=== PATIENT | male | born 1970 | race Caucasian/White ===

== ENCOUNTER 2021-03-17 11:26 | Emergency (ER) | payer BC, SELFPAY ==
[2021-03-17 11:26] VITALS: BP 146/84; PULSE 96; RESP 18; TEMP 36.4; O2SAT 97; BMI 35.2
[2021-03-17 11:55] VITALS: BP 146/84; PULSE 96; RESP 18; TEMP 36.4; O2SAT 97
--- NOTE | 2021-03-17 12:19 | VDLE_ITS ---
Reason For Study: SWELLING RIGHT GSV is normal. CFV is compressible, spontaneous, phasic, competent and demonstrates normal augmentation. FV is compressible, spontaneous, phasic, competent and demonstrates normal augmentation. POP V is compressible, spontaneous, phasic, competent and demonstrates normal augmentation. T/P Trunk is compressible. PTV is compressible. RT PerV is compressible. Procedure Exam performed portable in ED. A preliminary report was called and/or faxed to ED. VL/Venous Duplex US, Unilateral Interpretation Summary There is no evidence of right lower extremity deep vein thrombosis. Right great saphenous vein appears patent and compressible segmentally. Ordering Physician: Clarita Sierra Performed By: Leanne Reyez, KAREN, RVT
--- NOTE | 2021-03-17 12:19 | EDS_ITS ---
HPI History of Present Illness Chief Complaint: Lower Extremity Injury Informant: patient Onset/Context/Timing Onset: Weeks Current Severity: Moderate Maximum Severity: Moderate Narrative Narrative: Patient presents secondary to right lower extremity pain and swelling. Patient states that on February 24 he had a Roll-off dumpster delivered to his house. He had thrown something in there that he did not want thrown out. He climbed into the dumpster and the material underneath him shifted and he fell striking his greenfield against the side of the dumpster. Patient states that he had some swelling and pain there that was progressively improving. Over the past 2 days has not had increased pain, redness, and swelling to his right lower leg. No chest pain or shortness of breath. [facility] Medical History (Updated 03/17/21 @ 13:[address] Clarita Sierra MD) Epilepsy Home Medications cephalexin 500 mg PO Q6 #40 cap 03/17/21 [Rx Last Taken Unknown] sulfamethoxazole-trimethoprim [Bactrim DS] 1 tab PO BID #20 tab 03/17/21 [Rx Last Taken Unknown] Allergy/AdvReac Type Severity Reaction Status Date / Time No Known Allergies Allergy Verified 03/17/21 11:28 Social History Smoking Status: Current every day smoker tobacco type: cigarettes ROS ROS ED Constitutional Constitutional ED: Denies chills or fever(s) Eyes Eyes: Denies change in vision ENT ENT ED: Denies sore throat Cardiovascular Cardiovascular: Denies chest pain Respiratory/Chest Respiratory/Chest: Denies cough or dyspnea Gastrointestinal Gastrointestinal: Denies abdominal pain, diarrhea, nausea or vomiting Genitourinary Genitourinary ED: Denies dysuria Musculoskeletal Musculoskeletal: Reports arthralgias; Denies back pain Integumentary Denies rash Neurologic Neurologic: Denies headache(s) or weakness Psychiatric Psychiatric: Denies anxiety or depression Endocrine Endocrinology: Denies polydipsia or polyuria Allergic/Immunologic Allergic/Immunologic ED: Denies urticaria EXAM Physical Exam Const Vital Signs: 03/17/21 11:26 03/17/21 11:55 Temperature 97.6 F L 97.6 F L Temperature Source Temporal Temporal Pulse Rate 96 96 Respiratory Rate 18 18 Blood Pressure 146/84 H 146/84 H Blood Pressure Mean 104 104 Pulse Ox 97 97 Oxygen Delivery Method Room Air Room Air Positive well nourished and well developed General Appearance ED: well developed HEENT Reports normocephalic and head/scalp atraumatic Eyes PERRL and EOMs intact bilaterally Neck supple Chest Wall inspection of chest normal and palpation of chest normal Resp normal respiratory effort and clear to auscultation bilaterally Cardio regular rate and regular rhythm GI normal to inspection, nondistended, normoactive bowel sounds Palpation: soft Extremity Extremity Narrative: 3+ right lower extremity edema. Erythema and warmth over the lower anterior greenfield. Strong distal pulses. No open wounds or drainage. Neuro oriented x3 and no sensory deficits noted Sensorium / Orientation: alert Motor Exam: strength 5/5 throughout Psych mental status grossly normal Skin no rashes or lesions noted MDM MDM MDM Narrative Medical decision making narrative: Venous ultrasound of the right lower extremity is ordered. Treatment and Re-Evaluation Comments:: Per tech, no evidence of DVT. Test results discussed with the cecile ent. Patient be treated with Bactrim and Keflex for cellulitis. He is given return instructions. Discharge Plan Triage Chief Complaint: Lower Extremity Injury ED Provider: Clarita Sierra Dx/Rx/DC Orders Clinical Impression: Cellulitis Instructions: ED Cellulitis Prescriptions: New sulfamethoxazole-trimethoprim [Bactrim DS] 800-160 mg tablet 1 tab PO BID Qty: 20 RF: 0 cephalexin 500 mg capsule 500 mg PO Q6 Qty: 40 RF: 0 Primary Care Provider: NOT,DEFINED Referrals: Fast,Ruthie, DO [NON-STAFF] - As Needed NOT,DEFINED [Primary Care Provider] - Disposition Disposition: Home, Self Care
[2021-03-17] MEDS: Cephalexin 250 MG Capsule 500 MG PO (13:18)
[2021-03-17] MEDS: Smz/Tmp Ds Tablet 1 TABLET PO (13:19)
[2021-03-17 13:22] VITALS: BP 134/66; PULSE 72; RESP 15; O2SAT 99
== END 2021-03-17 13:22 | disposition home or self-care (01) ==
LOC: ED 13:17
PROVIDERS: Emergency Provider Emergency Medicine
DX: L03.115 Cellulitis of right lower limb (principal); M79.89 Other specified soft tissue disorders; M79.604 Pain in right leg; G40.909 Epilepsy, unspecified, not intractable, without status epilepticus; F17.210 Nicotine dependence, cigarettes, uncomplicated
CPT/HCPCS: 93971; 99285